=== PATIENT | male | born 1945 | race Two or more races ===

== ENCOUNTER → 2020-12-22 20:21 | Outpatient (CLI) | payer MEDICARE ==
[2020-12-22 20:38] LABS: BASOPHILS 0.5 % (0-2); EOSINOPHILS 5.1 % (0-7); HEMATOCRIT 43.4 % (42.0-54.0); HEMOGLOBIN 14.1 g/dL (13.5-17.5); IMMATURE GRANULOCYTES 0.3 % (0-5); LYMPHOCYTE ABS# 1.75 10x3/uL (1.32-3.57); LYMPHOCYTES 26.4 % (15-50); MCH 29.7 pg (26.0-34.0); MCHC 32.5 g/dL (31.0-37.0); MCV 91.4 fL (80.0-100.0); MEAN PLATELET VOLUME 11.7 fL (7.4-10.4); MONOCYTES 5.1 % (2-11); NEUTROPHIL ABS# 4.14 10x3/uL (1.78-5.38); NEUTROPHILS 62.6 % (40-80); PLATELET COUNT 300 10x3/uL (130-400); RBC 4.75 10x6/uL (4.20-6.10); RDW 13.8 % (11.5-14.5); WBC 6.6 10x3/uL (4.8-10.8)
[2020-12-22 21:02] LABS: ALBUMIN 3.2 g/dL (3.4-5.0); ANION GAP 12.7 mmol/L (8-16); BILIRUBIN - TOTAL 0.23 mg/dL (0.2-1.3); CALCIUM 8.6 mg/dL (8.5-10.1); CARBON DIOXIDE 28.7 mmol/L (21.0-32.0); CHOL - HDL RATIO 5.6 ratio (2.3-4.9); CREATININE - SERUM 1.3 mg/dL (0.6-1.3); LDL-HDL RATIO 2.8 ratio (1.5-3.5); POTASSIUM - SERUM 4.4 mmol/L (3.5-5.1); PROTEIN - SERUM 6.4 g/dL (6.4-8.2); THYROID STIMULATING HORMONE 0.89 uIU/mL (0.36-3.74)
== END | disposition home or self-care (01) ==
LOC: D.LABREF 20:21
PROVIDERS: ATTEND Family Medicine
DX: I10 Essential (primary) hypertension (principal); F02.81 Dementia in other diseases classified elsewhere, unspecified severity, with behavioral disturbance; F33.9 Major depressive disorder, recurrent, unspecified

== ENCOUNTER → 2021-02-06 17:57 | Outpatient (CLI) | payer MEDICARE | END | disposition home or self-care (01) | LOC: D.LABREF 17:57 | PROVIDERS: ATTEND Family Medicine | DX: F33.9 Major depressive disorder, recurrent, unspecified (principal); F02.81 Dementia in other diseases classified elsewhere, unspecified severity, with behavioral disturbance ==